=== PATIENT | male | born 1970 | race Caucasian/White ===

== ENCOUNTER 2017-05-14 23:19 | Emergency (ER) | payer SELFPAY ==
[~2017-05-14] VITALS: Ht 180.3 cm; Wt 94.5 kg
[2017-05-14 23:28] VITALS: Ht 180.3 cm; Wt 94.5 kg
[2017-05-15] MEDS ORDERED: OXYC-209 PO (00:17)
[2017-05-15] MEDS ORDERED: NAPR-260 PO (00:18)
--- NOTE | 2017-05-15 03:12 | ERD ---
ER Documentation Chief Complaint Date/Time DATE: 05/15/17 TIME: 03:09 Chief Complaint carrying suit cases & might hv popped his L shoulder HPI Patient is a 47-year-old male with previous left arm surgery who presents with left arm pain. He said that he was lifting a piece of luggage off of a rack and felt a pop in his left arm. He has had a biceps tendon rupture in that arm that was repaired previously by Dr. Mcadams. The patient now feels a ball of muscle in his left bicep. The patient is from [place]. I spoke with Dr. Mcadams his orthopedic surgeon who called me and told me that he felt that the most likely cause of this would be another biceps tendon rupture of the repair. He recommended a prescription for naproxen and Percocet. The patient is left- handed. The patient is going to follow-up with his orthopedic surgeon next week and will get an MRI. The doctor did recommend that I use a sling and swath. The patient is here on vacation. ROS All systems reviewed and are negative except as per history of present illness. Medications Home Meds Active Scripts Naproxen* (Naprosyn*) 500 Mg Tablet, 500 MG PO BID Y for PAIN AND/OR INFLAMMATION, #30 TAB Prov:JERRY ALEXIS MD 05/15/17 Oxycodone HCl/Acetaminophen (Percocet 10-325 mg Tablet) 1 Each Tablet, 1 EACH PO Q6 for 7 Days, TAB Prov:JERRY ALEXIS MD 05/15/17 Allergies Allergies: Coded Allergies: Penicillins (Verified Allergy, Unknown, 05/14/17) hydrocodone (Verified Allergy, Unknown, 05/14/17) PMhx/Soc History of Surgery: Yes (long head bicep sx 2014) Anesthesia Reaction: No Hx Neurological Disorder: No Hx Respiratory Disorders: No Hx Cardiac Disorders: No Hx Psychiatric Problems: No Hx Miscellaneous Medical Probl: No Hx Alcohol Use: No Hx Substance Use: No Hx Tobacco Use: No Smoking Status: Never smoker FmHx Family History: No diabetes Physical Exam Vitals Vital Signs Date Time Temp Pulse Resp B/P Pulse Ox O2 Delivery O2 Flow Rate FiO2 05/14/17 23:28 98.4 76 20 143/95 97 Physical Exam Const: Moderate distress secondary to pain Head: Atraumatic Eyes: Normal Conjunctiva ENT: Normal External Ears, Nose and Mouth. Neck: Full range of motion..~ No meningismus. Resp: Clear to auscultation bilaterally Cardio: Regular rate and rhythm, no murmurs Abd: Soft, non tender, non distended. Normal bowel sounds Skin: No petechiae or rashes Back: No midline or flank tenderness Ext: Patient has a defect in the left upper arm near the humerus where the biceps tendon has ruptured, there is a ball of muscle in the mid bicep consistent with biceps tendon rupture Neur: Awake and alert Psych: Normal Mood and Affect Procedures/MDM Splint Note Type: Sling and swath Location: Left upper extremity Indication: Biceps tendon rupture Splint Assessment: Neurovascularly intact post splint placement with good fit. Patient is a 47-year-old male who presents with a biceps tendon rupture. The patient was placed in a sling and swath. He will be given a prescription for Percocet and Naprosyn. He can follow-up with his orthopedic surgeon in [place] within 1 week. He can return for any worsening symptoms. I believe outpatient management is appropriate at this time. Departure Diagnosis: Primary Impression: Biceps tendon rupture Encounter type: initial encounter Laterality: left Qualified Code: S46.212A - Rupture of left biceps tendon, initial encounter Condition: Fair Patient Instructions: Pain Management Referrals: Dr. Mcadams Additional Instructions: SPECIALIST: YOU HAVE A MEDICAL CONDITION WHICH REQUIRES YOU TO SEE A SPECIALIST WITHIN THE NEXT 1-2 DAYS. PLEASE FOLLOW UP WITH YOUR PRIMARY PHYSICIAN FOR REFFERAL.IF YOU DO NOT HAVE A PRIMARY CARE PHYSICIAN AND/OR YOU CAN NOT AFFORD TO SEE A PHYSICIAN THE FOLLOWING RESOURCES HAVE BEEN SUPPLIED TO YOU. IT IS YOUR RESPONSIBILITY TO BE SEEN BY THE SPECIALIST JERRY ALEXIS MD May 15, 2017 03:12
== END 2017-05-15 00:23 | disposition home or self-care (01) ==
LOC: E/R 23:19
DX: S46.212A Strain of muscle, fascia and tendon of other parts of biceps, left arm, initial encounter (principal); R40.2142 Coma scale, eyes open, spontaneous, at arrival to emergency department; R40.2252 Coma scale, best verbal response, oriented, at arrival to emergency department; R40.2362 Coma scale, best motor response, obeys commands, at arrival to emergency department; X50.0XXA Overexertion from strenuous movement or load, initial encounter; Y92.9 Unspecified place or not applicable
CPT/HCPCS: 99283